=== PATIENT | female | born 1930 | race Caucasian/White ===

== ENCOUNTER 2017-05-26 20:03 | Emergency (ER) | payer OTHER ==
[~2017-05-26] VITALS: Ht 152.4 cm; Wt 65.3 kg
[~2017-05-26 20:03] MED LIST: ALDACTONE25 MG; BETAXOLOL HCL10 MG; DIOVAN40 MG; DOLOGEN CAPLET1 EACH; ELIQUIS2.5 MG; ELIQUIS2.5 MG PO; FUROSEMIDE40 MG; FUROSEMIDE40 MG PO; INTEGRA PLUS C1 EACH PO; INTESTINEX1 CA1 PO; METOLAZONE2.5 MG; NEURONTIN300 MG; NEURONTIN300 MG PO; TOPROL XL100 M1 PO; [UNRECOGNIZED DRUG - OTHER] PO
== END 2017-05-27 10:13 | disposition home or self-care (01) ==
LOC: ER 20:03
DX: E16.1 Other hypoglycemia (principal); I13.0 Hypertensive heart and chronic kidney disease with heart failure and stage 1 through stage 4 chronic kidney disease, or unspecified chronic kidney disease; N17.8 Other acute kidney failure; N18.3 Chronic kidney disease, stage 3 (moderate); I50.22 Chronic systolic (congestive) heart failure; I48.2 Chronic atrial fibrillation; L97.828 Non-pressure chronic ulcer of other part of left lower leg with other specified severity; L97.818 Non-pressure chronic ulcer of other part of right lower leg with other specified severity; E86.0 Dehydration; Z96.651 Presence of right artificial knee joint; I48.0 Paroxysmal atrial fibrillation

== ENCOUNTER → 2017-07-26 | Emergency (ER) | payer OTHER ==
[~2017-07-26] VITALS: Ht 160 cm; Wt 72.6 kg
== END | disposition home or self-care (01) ==
LOC: ER 11:57
DX: S32.512A Fracture of superior rim of left pubis, initial encounter for closed fracture (principal); S40.012A Contusion of left shoulder, initial encounter; W06.XXXA Fall from bed, initial encounter; Y93.89 Activity, other specified; Y92.013 Bedroom of single-family (private) house as the place of occurrence of the external cause; Y99.8 Other external cause status

== ENCOUNTER 2017-08-11 14:01 | Emergency (ER) | payer OTHER ==
[~2017-08-11] VITALS: Ht 157.5 cm; Wt 64.9 kg
== END 2017-08-11 19:02 | disposition home or self-care (01) ==
LOC: ER 14:01
DX: S16.1XXA Strain of muscle, fascia and tendon at neck level, initial encounter (principal); R42 Dizziness and giddiness; X50.0XXA Overexertion from strenuous movement or load, initial encounter; Y93.01 Activity, walking, marching and hiking; Y92.018 Other place in single-family (private) house as the place of occurrence of the external cause; Y99.8 Other external cause status